=== PATIENT | female | born 1950 | race Caucasian/White ===

== ENCOUNTER 2018-07-07 17:04 | Emergency (ER) | payer MEDICARE ==
--- NOTE | 2018-07-07 19:05 | RAD ---
CHEST PA AND LATERAL TWO VIEWS: 07/07/18 HISTORY: 68-year-old female with history of cough and fever. Heart size is normal. There is some minimal increased density in the region of the right middle lobe which certainly could represent some minimal or early right middle lobe pneumonia or pneumonitis. The left lung is clear. IMPRESSION: Heart size is normal. Minimal patchy parenchymal changes in the right middle lobe evidence for minima l or early right middle lobe pneumonia. POS: [facility]
== END 2018-07-07 18:27 | disposition home or self-care (01) ==
LOC: ERS 17:04
DX: J18.1 Lobar pneumonia, unspecified organism (principal); E78.5 Hyperlipidemia, unspecified; F41.9 Anxiety disorder, unspecified; L65.9 Nonscarring hair loss, unspecified; M06.9 Rheumatoid arthritis, unspecified; Z79.899 Other long term (current) drug therapy
CPT/HCPCS: 71046; 87081; 87430; 87804